=== PATIENT | female | born 1975 | race Caucasian/White ===

== ENCOUNTER 2022-07-22 08:52 | Outpatient (REF) | payer BC, SELFPAY ==
[2022-07-22 11:27] LABS: MANUAL DIFF FLAG NO
[2022-07-22 11:40] LABS: Basophils Percent Auto 0.6 % (0-2); Eosinophils Absolute Auto 0.1 X10*3/uL (0.0-0.4); Eosinophils Percent Auto 2.2 % (0-4); Hemoglobin 13.5 g/dl (12.0-16.0); Imm Gran Abs Auto 0.02 X10*3/uL (0.00-0.03); Imm Gran Pct Auto 0.4 % (0.0-0.4); Lymphocytes Absolute Auto 2.1 X10*3/uL (1.2-4.9); Lymphocytes Percent Auto 41.7 % (20-40); Mean Corpuscular HGB Conc 32.9 g/dl (31.0-35.0); Mean Corpuscular Hemoglobin 30.5 pg (27.0-33.0); Mean Corpuscular Volume 92.6 fL (80.0-98.0); Mean Platelet Volume 10.5 fL (9.4-12.3); Monocytes Absolute Auto 0.5 X10*3/uL (0.1-1.2); Monocytes Percent Auto 10.2 % (2-11); Neutrophils Absolute Auto 2.3 x10*3/uL (2.0-8.3); Neutrophils Percent Auto 44.9 % (45-73); Platelet Count 297 X10*3/uL (160-400); Red Blood Count 4.43 X10*6/uL (4.20-5.50); Red Cell Distribution Width 12.1 % (11.0-16.0); White Blood Count 5.1 X10*3/uL (4.8-10.8)
[2022-07-22 12:05] LABS: Alanine Aminotransferase 20 U/L (0-31); Albumin Level 4.3 g/dL (3.5-5.0); Alkaline Phosphatase 87 U/L (39-117); Anion Gap 14 (12-20); Aspartate Amino Transferase 18 U/L (5-31); Bilirubin Total 0.5 mg/dL (0.0-1.0); Blood Urea Nitrogen 18 mg/dL (9-16); Calcium 9.1 mg/dL (8.4-10.2); Carbon Dioxide 24 mmol/L (22-29); Chloride 108 mmol/L (96-108); Cholesterol 183 mg/dL; Estimated Glomerular Filt Rate > 60; Glucose Fasting 85 mg/dL (60-99); HDL Cholesterol 54 mg/dL; LDL Cholesterol Calculated 113 mg/dl; Potassium 4.2 mmol/L (3.3-5.1); Sodium 142 mmol/L (135-145); Total Protein 6.8 g/dL (6.5-8.0); Triglycerides 82 mg/dL
[2022-07-22 12:07] LABS: TSH reflex Free T4 2.76 uIU/mL (0.32-4.0); Vitamin D 25-OH Total 35.3 ng/mL (>30)
== END 2022-07-22 08:53 | disposition home or self-care (01) ==
LOC: HO.HMGCLDS 08:52
PROVIDERS: PCP Internal Medicine; Visit Provider Internal Medicine
DX: Z00.00 Encounter for general adult medical examination without abnormal findings (principal); E03.9 Hypothyroidism, unspecified; E04.1 Nontoxic single thyroid nodule; Z92.89 Personal history of other medical treatment
CPT/HCPCS: 36415; 80053; 80061; 82306; 84443; 85025

== ENCOUNTER 2023-03-02 10:59 | Outpatient (AMB) | payer BC, SELFPAY ==
--- NOTE | 2023-03-02 11:10 | MHC.PC.OV ---
Vital Signs 03/02/23 11:12 Height 5 ft 7 in Weight 165 lb BMI 25.8 BP 120/78 Blood Pressure Location Lt brachial Position Sitting Pulse 76 Pulse Source Pulse Oximeter Pulse Oximetry (%) 98 Oxygen Delivery Method Room Air Intake Visit Reasons: Fatigue, hair loss Intake Note: Pt is here today for a sick visit. Pt c/o fatigue and hair loss. Pt c/o lump on her neck/thyroid area. Allergies IVP Dye Adverse Reaction (Uncoded 03/02/23 11:16) Swelling Medication List - Last Reconciled 03/02/23 by Sally Marin MD loratadine 10 mg PO DAILY Tobacco use date assessed: 03/02/23 Dental Screening Dental Screen Date: 03/02/23 Did you have a dental visit in the last 12 months?: Yes Did you have a dental problem in the last 6 months where you did not have access to dental care?: No Was dental information given to patient?: Patient has dentist HPI Fatigue, hair loss HPI Details Pt presents complaining of chronic feeling tired needed to take a nap in the afternoon and increased hair loss the last 20 years. Patient reports getting enough sleep at night and denies daytime somnolence. She denies depression or change in appetite. Patient reports increased hair lost for the last 20 years and have been to different funeral counselor and try different medications without significant change. Patient denies any bald spots. She would like to see handyman for follow-up on large thyroid nodules with negative biopsy in the past. 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 Stewart Mock, Jennifer Lopes, Chip Méndez and colleagues, with an educational julian from [employer] Review of Systems Const All systems reviewed & are unremarkable except as noted in HPI and below Reports no additional complaints Eyes Reports no additional complaints ENT Reports no additional complaints Card Reports no additional complaints Resp Reports no additional complaints GI Reports no additional complaints Reports no additional complaints Physical exam (Primary Care) Vital Signs: Last Vital Signs Pulse 76 03/02/23 11:12 BP 120/78 03/02/23 11:12 Pulse Ox 98 03/02/23 11:12 Oxygen Delivery Method Room Air 03/02/23 11:12 BMI result Body Mass Index 25.8 Tobacco/Smoking Status: Tobacco use Status Tobacco use date assessed 03/02/23 03/02/23 11:19 Patient Tobacco Use Status Former Tobacco user 03/02/23 11:12 e-Cigarette/Vaping Use Never Used 03/02/23 11:12 Thrive Assessment: Date of Thrive Assessment Date Thrive assessed 07/22/22 03/02/23 11:12 Const General: no acute distress HENMT Ears: hearing grossly normal bilaterally Face and sinus: Yes normal facial exam Mouth: Normal oral and palatal mucosa present Eyes General: appearance normal, both eyes and all related structures Neck Neck: Yes supple Thyroid: diffusely enlarged Resp Effort & Inspection: normal respiratory effort Auscultation: clear to auscultation bilaterally Cardio Rhythm: regular rhythm Heart sounds: S1 normal heart sound present and S2 normal heart sound present GI Inspection: Yes normal to inspection Palpation (GI): Soft to palpation Percussion: Yes normal to percussion Auscultation: normal bowel sounds Assessment and Plan Assessment & Plan (1) Annual physical exam: Code(s): Z00.00 - Encounter for general adult medical examination without abnormal findings (2) Thyroid nodule: Comment: 3 nodules (1 large, 2 small nodules), use of bx [place] Code(s): E04.1 - Nontoxic single thyroid nodule Plan: Referred to Dr. Arce (3) Chronic constipation: Code(s): K59.09 - Other constipation Plan: Increase fiber and water intake, patient is up-to-date with colonoscopy (4) Fatigue: Code(s): R53.83 - Other fatigue Plan: Obtain blood work including TSH CBC iron profile Orders: Orders TSH reflex Free T4 Today E04.1 - Nontoxic single thyroid nodule, K59.09 - Other constipation, Z00.00 - Encounter for general adult medical examination without abnormal findings IRON PROFILE Today E04.1 - Nontoxic single thyroid nodule, K59.09 - Other constipation, Z00.00 - Encounter for general adult medical examination without abnormal findings Complete Blood Count Auto Diff Today E04.1 - Nontoxic single thyroid nodule, K59.09 - Other constipation, Z00.00 - Encounter for general adult medical examination without abnormal findings Vitamin B12 and Folate Today E04.1 - Nontoxic single thyroid nodule, K59.09 - Other constipation, Z00.00 - Encounter for general adult medical examination without abnormal findings Comprehensive [place]. Panel Fast Today E04.1 - Nontoxic single thyroid nodule, K59.09 - Other constipation, Z00.00 - Encounter for general adult medical examination without abnormal findings Referrals Endocrinology Referral E04.1 - Nontoxic single thyroid nodule Coding Level of Care Code Est Pt Level 3 (87580) Diagnoses Annual physical exam Z00.00 Thyroid nodule E04.1 Chronic constipation K59.09 Fatigue R53.83
[2023-03-02 11:12] VITALS: BP 120/78; PULSE 76; O2SAT 98; BMI 25.8
== END 2023-03-02 12:59 | disposition home or self-care (01) ==
PROVIDERS: PCP Internal Medicine; Visit Provider Internal Medicine
DX: E04.1 Nontoxic single thyroid nodule (principal); R53.83 Other fatigue; K59.09 Other constipation
CPT/HCPCS: 99213

== ENCOUNTER 2023-03-02 11:48 | Outpatient (REF) | payer BC, SELFPAY ==
[2023-03-02 13:20] LABS: MANUAL DIFF FLAG NO
[2023-03-02 13:53] LABS: Basophils Percent Auto 0.6 % (0-2); Eosinophils Absolute Auto 0.2 X10*3/uL (0.0-0.4); Eosinophils Percent Auto 3.9 % (0-4); Hematocrit 44.6 % (37.0-47.0); Hemoglobin 14.5 g/dl (12.0-16.0); Imm Gran Abs Auto 0.02 X10*3/uL (0.00-0.03); Imm Gran Pct Auto 0.4 % (0.0-0.4); Lymphocytes Absolute Auto 2.1 X10*3/uL (1.2-4.9); Mean Corpuscular HGB Conc 32.5 g/dl (31.0-35.0); Mean Corpuscular Hemoglobin 30.9 pg (27.0-33.0); Mean Corpuscular Volume 95.1 fL (80.0-98.0); Mean Platelet Volume 10.2 fL (9.4-12.3); Monocytes Absolute Auto 0.5 X10*3/uL (0.1-1.2); Monocytes Percent Auto 10.3 % (2-11); Neutrophils Absolute Auto 1.9 x10*3/uL (2.0-8.3); Neutrophils Percent Auto 40.8 % (45-73); Platelet Count 328 X10*3/uL (160-400); Red Blood Count 4.69 X10*6/uL (4.20-5.50); Red Cell Distribution Width 12.6 % (11.0-16.0); White Blood Count 4.7 X10*3/uL (4.8-10.8)
[2023-03-02 14:50] LABS: Alanine Aminotransferase 16 U/L (0-31); Albumin Level 4.7 g/dL (3.5-5.0); Alkaline Phosphatase 64 U/L (39-117); Anion Gap 10 (12-20); Aspartate Amino Transferase 14 U/L (5-31); Bilirubin Total 0.6 mg/dL (0.0-1.0); Blood Urea Nitrogen 14 mg/dL (9-16); Calcium 9.9 mg/dL (8.4-10.2); Carbon Dioxide 28 mmol/L (22-29); Chloride 107 mmol/L (96-108); Estimated Glomerular Filt Rate > 60; Glucose Fasting 78 mg/dL (60-99); Iron 105 mcg/dL (30-160); Percent Iron Saturation 32 % (15-50); Potassium 4.2 mmol/L (3.3-5.1); Sodium 141 mmol/L (135-145); Total Iron Binding Capacity 329 mcg/dL (228-428); Total Protein 7.7 g/dL (6.5-8.0); Unsaturated Iron Binding 224 ug/dL
[2023-03-02 14:52] LABS: TSH reflex Free T4 4.27 uIU/mL (0.32-4.0)
[2023-03-02 15:17] LABS: Folate 11.2 ng/mL (> or = 4.0); Vitamin B12 1380 pg/mL (200-900)
[2023-03-02 15:27] LABS: Free T4 (Free Thyroxine) 0.99 ng/dL (0.71-1.85)
== END 2023-03-02 11:49 | disposition home or self-care (01) ==
LOC: HO.HMGCLDS 11:48
PROVIDERS: PCP Internal Medicine; Visit Provider Internal Medicine
DX: Z00.00 Encounter for general adult medical examination without abnormal findings (principal); K59.09 Other constipation; E04.1 Nontoxic single thyroid nodule
CPT/HCPCS: 36415; 80053; 82607; 82746; 83540; 84439; 84443; 85025

== ENCOUNTER 2023-06-03 09:14 | Outpatient (REF) | payer BC, SELFPAY ==
[2023-06-03 12:46] LABS: Vitamin B12 484 pg/mL (200-900)
== END 2023-06-03 09:15 | disposition home or self-care (01) ==
LOC: HO.HMGCLDS 09:14
PROVIDERS: PCP Internal Medicine; Visit Provider Internal Medicine
DX: E03.9 Hypothyroidism, unspecified (principal)
CPT/HCPCS: 36415; 82607; 82746; 84443

== ENCOUNTER 2023-08-14 13:34 | Outpatient (AMB) | payer OTHER, SELFPAY ==
[2023-08-14 13:40] VITALS: BP 108/74; PULSE 71; O2SAT 98; BMI 25.1
--- NOTE | 2023-08-14 13:40 | A.OFFPC_ITS ---
Vital Signs 08/14/23 13:40 Height 5 ft 7 in Weight 160 lb BMI 25.1 BP 108/74 Blood Pressure Location Lt brachial Position Sitting Pulse 71 Pulse Source Pulse Oximeter Pulse Oximetry (%) 98 Oxygen Delivery Method Room Air Intake Visit Reasons: Annual PE Intake Note: Pt is here today for PE. Pt needs a rfill on Loratadine. Allergies IVP Dye Adverse Reaction (Uncoded 08/14/23 13:42) Swelling Medication List - Last Reconciled 08/14/23 by Sally Marin MD levothyroxine 50 mcg PO DAILY loratadine 10 mg PO DAILY Tobacco use date assessed: 08/14/23 Dental Screening Dental Screen Date: 08/14/23 Did you have a dental visit in the last 12 months?: Yes Did you have a dental problem in the last 6 months where you did not have access to dental care?: No Was dental information given to patient?: Patient has dentist HPI Annual PE HPI Details Patient presents for physical. She complains of feeling tired and increase hair loss. Patient has been taking 25 mcg of levothyroxine since last year. 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 1. Little interest or pleasure in doing things: not at all 2. Feeling down, depressed, or hopeless: not at all 3. Trouble falling or staying asleep, or sleeping too much: not at all 4. Feeling tired or having little energy: not at all 5. Poor appetite or overeating: not at all 6. Feeling bad about yourself - or that you are a failure or have let yourself or your family down: not at all 7. Trouble concentrating on things, such as reading the newspaper or watching television: not at all 8. Moving or speaking so slowly that other people could have noticed. Or the opposite - being so fidgety or restless that you have been moving around a lot more than usual: not at all 9. Thoughts that you would be better off or of hurting yourself in some way: not at all Total score: 0 Depression Screening Interpretation: Negative Depression Screening Done: Yes Source: Developed by Drs. Stewart Mock, Jennifer Lopes, Chip Méndez and colleagues, with an educational julian from [employer]. Thrive Questionnaire Date Thrive assessed: 08/14/23 I am a: Patient What is your living situation today?: I have a steady place to live Within the past 12 months, did the food you bought not last and you didn't have the money to get more?: Never true Within the past 12 months, did you worry whether your food would run out before you got money to buy more?: Never true Do you have trouble paying for medicines?: No Do you have trouble getting transportation to medical appointments?: No Do you have trouble paying your heating and electricity bill?: No Do you have trouble taking care of your child, family member or friend?: No Do you have trouble with day-to-day activities such as bathing, preparing meals, shopping, managing finances, etc.?: No Are you currently unemployed and looking for a job?: No Are you interested in more education?: No Please select the resources that you would like help with: None Currently or been in a relationship where the following occur: no concerns reported THRIVE Score: 0 AUDIT C Alcohol Use Questionnaire (AUDIT-C) 1. How often do you have a drink containing alcohol?: Never 3. How often do you have six or more drinks on one occasion?: Never Total Score: 0 KENA-7 AMB Questionnaire KENA-7 Date KENA - 7 assessed: 08/14/23 Feeling nervous, anxious, or on edge: 0 = Not at all Not being able to stop or control worryin = Not at all Worrying too much about different things: 0 = Not at all Trouble relaxin = Not at all Being so restless that it is hard to sit still: 0 = Not at all Becoming easily annoyed or irritable: 0 = Not at all Feeling afraid as if something awful might happen: 0 = Not at all Total KENA-7 score (0-4 normal; 5-9 mild; 10-14 moderate; 15-21 severe): 0 Source: Developed by Drs. Stewart Mock, Jennifer Lopes, Chip Méndez and colleagues, with an educational julian from [employer]. Review of Systems Const All systems reviewed & are unremarkable except as noted in HPI and below Reports no additional complaints Eyes Reports no additional complaints ENT Reports no additional complaints Card Reports no additional complaints Resp Reports no additional complaints GI Reports no additional complaints Reports no additional complaints Physical exam (Primary Care) Vital Signs: Last Vital Signs Pulse 71 08/14/23 13:40 BP 108/74 08/14/23 13:40 Pulse Ox 98 08/14/23 13:40 Oxygen Delivery Method Room Air 08/14/23 13:40 BMI result Body Mass Index 25.1 Tobacco/Smoking Status: Tobacco use Status Tobacco use date assessed 08/14/23 08/14/23 13:45 Patient Tobacco Use Status Former Tobacco user 08/14/23 13:45 e-Cigarette/Vaping Use Never Used 08/14/23 13:45 PHQ-9: PHQ-9 Score PHQ-9: Total score 0 08/14/23 13:46 Depression Screening Interpretation: Negative Thrive Assessment: Date of Thrive Assessment Date Thrive assessed 08/14/23 08/14/23 13:46 Currently or been in a relationship where the following occur: no concerns reported Const General: no acute distress HENMT Head: Yes normal to inspection General nose exam: Normal external nose present Mouth: Normal oral and palatal mucosa present Eyes General: appearance normal, both eyes and all related structures Neck Neck: Yes no lymphadenopathy and Yes supple Resp Effort & Inspection: normal respiratory effort Auscultation: clear to auscultation bilaterally Cardio Rhythm: regular rhythm Heart sounds: S1 normal heart sound present and S2 normal heart sound present GI Inspection: Yes normal to inspection Palpation (GI): Soft to palpation Percussion: Yes normal to percussion Auscultation: normal bowel sounds Assessment and Plan Assessment & Plan (1) Thyroid nodule: Comment: 3 nodules (1 large, 2 small nodules) had negative bx [place] 2021, patient declined repeat thyroid ultrasound Code(s): E04.1 - Nontoxic single thyroid nodule (2) Annual physical exam: Code(s): Z00.00 - Encounter for general adult medical examination without abnormal findings Plan: Well-balanced diet regular physical activity discussed with the patient. She will return in 2 months for fasting blood. Patient is up-to-date with pelvic exam by material yard clerk and had negative colonoscopy in 2017. Mammogram will be scheduled at [place] (3) Hypothyroid: Code(s): E03.9 - Hypothyroidism, unspecified Plan: Increase levothyroxine from 25-50 mcg for 2 months and check TSH level Orders: Orders Comprehensive [place]. Panel Fast 2 Months E04.1 - Nontoxic single thyroid nodule, Z00.00 - Encounter for general adult medical examination without abnormal findings Lipid Panel 2 Months E04.1 - Nontoxic single thyroid nodule, Z00.00 - Encounter for general adult medical examination without abnormal findings Vitamin D 25-OH Total 2 Months E04.1 - Nontoxic single thyroid nodule, Z00.00 - Encounter for general adult medical examination without abnormal findings Complete Blood Count Auto Diff 365 Days E03.9 - Hypothyroidism, unspecified, E04.1 - Nontoxic single thyroid nodule, Z00.00 - Encounter for general adult medical examination without abnormal findings Lipid Panel 365 Days E03.9 - Hypothyroidism, unspecified, E04.1 - Nontoxic single thyroid nodule, Z00.00 - Encounter for general adult medical examination without abnormal findings Vitamin D 25-OH Total 365 Days E03.9 - Hypothyroidism, unspecified, E04.1 - Nontoxic single thyroid nodule, Z00.00 - Encounter for general adult medical examination without abnormal findings MM screening mammo BI Today Z12.31 - Encounter for screening mammogram for malignant neoplasm of breast Complete Blood Count Auto Diff 2 Months E04.1 - Nontoxic single thyroid nodule, Z00.00 - Encounter for general adult medical examination without abnormal findings TSH reflex Free T4 2 Months E04.1 - Nontoxic single thyroid nodule, Z00.00 - Encounter for general adult medical examination without abnormal findings UA w Microscopic 2 Months E04.1 - Nontoxic single thyroid nodule, Z00.00 - Encounter for general adult medical examination without abnormal findings Comprehensive [place]. Panel Fast 365 Days E03.9 - Hypothyroidism, unspecified, E04.1 - Nontoxic single thyroid nodule, Z00.00 - Encounter for general adult medical examination without abnormal findings TSH reflex Free T4 365 Days E03.9 - Hypothyroidism, unspecified, E04.1 - Nontoxic single thyroid nodule, Z00.00 - Encounter for general adult medical examination without abnormal findings Medications: New levothyroxine 50 mcg PO DAILY 90 tabs 3RF loratadine 10 mg PO DAILY 90 tabs 3RF Discontinued levothyroxine Discontinued Reason: Doctor's Order 25 mcg PO DAILY 90 tabs 0RF Coding Level of Care Code Est Pt Prev Care 40-64y(47864) Diagnoses Thyroid nodule E04.1 Annual physical exam Z00.00 Hypothyroid E03.9
== END 2023-08-14 14:20 | disposition home or self-care (01) ==
PROVIDERS: PCP Internal Medicine; Visit Provider Internal Medicine
DX: E04.1 Nontoxic single thyroid nodule (principal); Z00.00 Encounter for general adult medical examination without abnormal findings; E03.9 Hypothyroidism, unspecified
CPT/HCPCS: 99396

== ENCOUNTER 2023-09-15 15:16 | Outpatient (REF) | payer OTHER, SELFPAY ==
--- NOTE | ~2023-09-15 | MM_ITS ---
EXAMINATION: MM SCREENING DIGITAL BREAST TOMOSYNTHESIS, BILATERAL CLINICAL INFORMATION: Screening. Asymptomatic. COMPARISON: Mammography: This study is compared with prior exams dating back to 2019. TECHNIQUE: Digital breast tomosynthesis is performed in both the craniocaudal and mediolateral oblique views along with computer-aided detection (CAD). Synthesized 2D images are generated from the tomosynthesis. FINDINGS: The breasts are heterogeneously dense, which may obscure small masses (ACR BI-RADS breast composition Category c). There are no significant masses, abnormal calcifications, or other abnormalities. There are scattered calcifications in each breast. They are benign. MM/MM tomosynthesis screening BI IMPRESSION: No mammographic evidence of malignancy. ASSESSMENT: BI-RADS BI-RADS 1 - Negative RECOMMENDATION: Routine annual mammography screening. 1 year F/U This examination should not preclude the clinical evaluation of a suspicious palpable abnormality. This patient's information was entered into a reminder system with a target due date for their next mammogram.
== END 2023-09-15 15:17 | disposition home or self-care (01) ==
LOC: HO.MAMMO 15:16
PROVIDERS: PCP Internal Medicine; Visit Provider Internal Medicine
DX: Z12.31 Encounter for screening mammogram for malignant neoplasm of breast (principal)
CPT/HCPCS: 77063; 77067

== ENCOUNTER → 2023-09-15 15:18 | Outpatient (BNV) | payer OTHER, SELFPAY | PROVIDERS: PCP Internal Medicine; Visit Provider Radiology Diagnostic Radiology | DX: Z12.31 Encounter for screening mammogram for malignant neoplasm of breast (principal) | CPT/HCPCS: 77063; 77067 ==

== ENCOUNTER 2023-10-17 08:56 | Outpatient (REF) | payer OTHER, SELFPAY ==
[2023-10-17 11:08] LABS: MANUAL DIFF FLAG NO
[2023-10-17 11:17] LABS: Basophils Percent Auto 0.5 % (0-2); Eosinophils Absolute Auto 0.2 X10*3/uL (0.0-0.4); Eosinophils Percent Auto 3.4 % (0-4); Hematocrit 41.4 % (37.0-47.0); Hemoglobin 13.8 g/dl (12.0-16.0); Imm Gran Abs Auto 0.02 X10*3/uL (0.00-0.03); Imm Gran Pct Auto 0.3 % (0.0-0.4); Lymphocytes Absolute Auto 2.4 X10*3/uL (1.2-4.9); Lymphocytes Percent Auto 39.6 % (20-40); Mean Corpuscular HGB Conc 33.3 g/dl (31.0-35.0); Mean Corpuscular Hemoglobin 30.9 pg (27.0-33.0); Mean Corpuscular Volume 92.6 fL (80.0-98.0); Mean Platelet Volume 10.1 fL (9.4-12.3); Monocytes Absolute Auto 0.7 X10*3/uL (0.1-1.2); Monocytes Percent Auto 11.1 % (2-11); Neutrophils Absolute Auto 2.7 x10*3/uL (2.0-8.3); Neutrophils Percent Auto 45.1 % (45-73); Platelet Count 317 X10*3/uL (160-400); Red Blood Count 4.47 X10*6/uL (4.20-5.50); Red Cell Distribution Width 12.2 % (11.0-16.0); White Blood Count 5.9 X10*3/uL (4.8-10.8)
[2023-10-17 11:19] LABS: Appearance Urine Cloudy; Color Urine Yellow; Glucose Urine UA Negative (Negative); Leukocyte Esterase Urine Trace (Negative); Nitrite Urine Negative (Negative); UMIC TRIGGER UA YES; Urine Blood Negative (Negative); Urine Ketones Negative (Negative); Urine Protein Negative (Neg-Trace)
[2023-10-17 11:23] LABS: Bacteria Urine 3+ (None Seen); Hyaline Casts Urine 0-2 /LPF (0-2); RBC Urine 0-2 /HPF (0-2); WBC Urine 0-5 /HPF (0-5)
[2023-10-17 12:10] LABS: Alanine Aminotransferase 17 U/L (0-31); Albumin Level 4.2 g/dL (3.5-5.0); Alkaline Phosphatase 77 U/L (39-117); Anion Gap 12 (12-20); Aspartate Amino Transferase 18 U/L (5-31); Bilirubin Total 0.3 mg/dL (0.0-1.0); Blood Urea Nitrogen 16 mg/dL (9-16); Calcium 9.8 mg/dL (8.4-10.2); Carbon Dioxide 26 mmol/L (22-29); Chloride 109 mmol/L (96-108); Cholesterol 203 mg/dL (<200); Estimated Glomerular Filt Rate > 60; Glucose Fasting 93 mg/dL (60-99); HDL Cholesterol 57 mg/dL (>40); LDL Cholesterol Calculated 133 mg/dL (<100); Potassium 4.2 mmol/L (3.3-5.1); Sodium 143 mmol/L (135-145); Total Protein 7.1 g/dL (6.5-8.0); Triglycerides 66 mg/dL (<150)
[2023-10-17 12:28] LABS: TSH reflex Free T4 1.49 uIU/mL (0.32-4.0); Vitamin D 25-OH Total 66.2 ng/mL (>30)
== END 2023-10-17 08:57 | disposition home or self-care (01) ==
LOC: HO.HMGCLDS 08:56
PROVIDERS: PCP Internal Medicine; Visit Provider Internal Medicine
DX: Z00.00 Encounter for general adult medical examination without abnormal findings (principal); E04.1 Nontoxic single thyroid nodule
CPT/HCPCS: 36415; 80053; 80061; 81001; 82306; 84443; 85025

== ENCOUNTER 2024-01-11 11:16 | Outpatient (REF) | payer OTHER, SELFPAY ==
--- NOTE | ~2024-01-11 | US_ITS ---
EXAMINATION: US THYROID CLINICAL INFORMATION: Nontoxic single thyroid nodule. COMPARISON: None available. TECHNIQUE: Linear transducer grayscale and color Doppler examination with attention to the region of the thyroid. FINDINGS: SIZE: Measurements of the thyroid lobes and nodules are given in sagittal, anteroposterior and transverse dimensions respectively. Right Thyroid Lobe: 6.1 x 2.3 x 3.0 cm, volume 22.0 mL. Parenchyma: The gland echotexture is homogeneous. Thyroid vascularity is increased. Left Thyroid Lobe: 5.3 x 1.3 x 1.7 cm, volume 6.1 mL. Parenchyma: The gland echotexture is homogeneous. Thyroid vascularity is increased. Isthmus: 0.3 cm in maximum AP dimension. Estimated total number of nodules greater than or equal to 1 cm: 2. Neonatal Doctor nodules are described as follows: 1. Location: Right superior/mid. Size: 4.0 x 2.4 x 2.9 cm, volume 14.9 mL. Nodule characteristics: Composition: Mixed cystic and solid (1). Echogenicity: Cannot be determined (1). Shape: Not taller than wide (0). Margins: Smooth (0). Echogenic Foci: Punctate echogenic foci (3). ACR TI-RADS total points: 5 ACR TI-RADS category: 4 2. Location: Right inferior. Size: 1.3 x 1.0 x 1.2 cm, volume 0.85 mL. Nodule characteristics: Composition: Solid (2). Echogenicity: Isoechoic (1). Shape: Not taller than wide (0). Margins: Smooth (0). Echogenic Foci: None (0). ACR TI-RADS total points: 3 ACR TI-RADS category: 3 3. Location: Right inferior-isthmus. Size: 0.9 x 0.5 x 0.9 cm, volume 0.25 mL. Nodule characteristics: Composition: Solid (2). Echogenicity: Hypoechoic (2). Shape: Not taller than wide (0). Margins: Smooth (0). Echogenic Foci: None (0). ACR TI-RADS total points: 4 ACR TI-RADS category: 4 4. Location: Left inferior lateral. Size: 0.7 x 0.6 x 0.6 cm, volume 0.11 mL. Nodule characteristics: Composition: Solid (2). Echogenicity: Hyperechoic (1). Shape: Not taller than wide (0). Margins: Smooth (0). Echogenic Foci: Punctate echogenic foci (3). ACR TI-RADS total points: 6 ACR TI-RADS category: 4 NODES: No lymphadenopathy is seen in the tissue surrounding the thyroid gland. US/US thyroid IMPRESSION: Diffusely heterogeneous thyroid gland with asymmetric enlargement of the right thyroid lobe. 4.0 cm right [id number] TR 4 thyroid nodule meets criteria for biopsy. Fine-needle aspiration recommended. This study was presented to me on January 14, 2024 for interpretation. PSA staff will provide results to referring provider at this time. ACR TI-RADS RECOMMENDATION REFERENCE: Ultrasound-guided fine-needle aspiration, followup ultrasound, no further follow up. * TR1 (0 point) and TR2 (2 points): No FNA or follow up. * TR3 (3 points): FNA if more than or equal to 2.5 cm in maximum dimension, followup ultrasound in 1, 3 and 5 years if 1.5 to 2.4 cm in maximum dimension. * TR4 (4-6 points): FNA if more than or equal to 1.5 cm in maximum dimension, followup ultrasound in 1, 2, 3 and 5 years if 1 to 1.4 cm in maximum dimension. * TR5 (more than or equal to 7 points): FNA if more than or equal to 1 cm in maximum dimension, followup ultrasound every year for 5 years if 0.5 to 0.9 cm in maximum dimension. * TR3, TR4 or TR5 nodules that are below the size threshold for followup receive no follow up.
== END 2024-01-11 11:17 | disposition home or self-care (01) ==
LOC: HO.HMGCX 11:16
PROVIDERS: PCP Internal Medicine; Visit Provider Internal Medicine
DX: E04.1 Nontoxic single thyroid nodule (principal)
CPT/HCPCS: 76536

== ENCOUNTER 2024-09-03 08:13 | Outpatient (REF) | payer OTHER, SELFPAY ==
--- OUTSIDE RECORDS SUMMARY | 2024-09-03 08:15 | XMS_ITS | Data Portability ---
Author Organization PAMELA Jimenez s, [address] Address [address] [place] [address] Assessment No assessment recorded. Plan of Treatment Reminders Order Date Submit Date Provider Last Modified By Organization Details Last Modified Time Details Appointments None recorded. Lab urinalysis, dipstick 2022 023 [email or web address] [facility] _[facility], [address] [facility], [place], [address], 3 19:39:12 culture, urine 2022 023 HARPER WOODS [facility], [address] [place] [address], [place], [address], 3 08:06:14 Referral None recorded. Procedures None recorded. Surgeries None recorded. Imaging XR, chest + abdomen 2022 023 [facility], [address] [place] [address], [address], 3 20:14:58 Medication Orders Miralax 17 gram/dose oral powder 2022 023 [facility]/Pharmacy #[id number], [address] [place], [address], 3 19:48:44 Colace 100 mg capsule 2022 023 [facility]/Pharmacy #[id number], [address] [place], [address], 3 19:48:45 Culturelle 10 billion cell capsule 2022 023 [email or web address] 247 [facility]/Pharmacy #[id number], [address] [place], [address], 10:07:11 Patient TargetsNo targets recorded. Patient InstructionsNo instructions recorded. Reason for Referral None Reported. Results Created Date Observation Date Name Description Value Unit Range Abnormal Flag Note LastModifiedBy Organization Detail LastModifiedTime 06/20/1906/23/2022 URINE CULTU RE, ROUTI NE urine culture, routine FINAL REPORT Not Available [facility] ([facility]) [address] [facility], [place], [address], 06/23/2022 08:06:13 06/20/1906/23/2022 URINE CULTU RE, ROUTI NE result 1 COMMEN T Cultu re shows less than 10,00 0 colon y formi ng units of bacte charlotte per howard liter of urine . This colon y count is not gener ally consi dered to be clini colin signi fican t. Not Available [facility] ([facility]) [address] [facility], [place], [address], 06/23/2022 08:06:13 06/20/1906/20/2022 urina lysis , dipst ick Unknown Analyte Normal = light yellow Not Available _jerome packer [address] [place], [address], 06/20/2022 17:18:13 06/20/1906/20/2022 urina lysis , dipst ick Unknown Analyte Normal = clear Not Available _jerome packer [address] [place], [address], 06/20/2022 17:18:13 06/20/19 23 06/20/2022 urina lysis , dipst ick Unknown Analyte Normal = negati ve Not Available _jerome packer [address] [place], [address], 06/20/2022 17:18:13 06/20/19 23 06/20/2022 urina lysis , dipst ick Unknown Analyte Normal = Negati ve Not Available [address]er [address], [place], [address], 06/20/2022 17:18:13 06/20/19 23 06/20/2022 urina lysis , dipst ick Unknown Analyte Normal = Negati ve Not Available [address] [place] [address], [place], [address], 06/20/2022 17:18:13 06/20/19 23 06/20/2022 urina lysis , dipst ick Unknown Analyte Normal = 1.010, 1.015, 1.020 Not Available [address] [place] [address], [place], [address], 06/20/2022 17:18:13 06/20/19 23 06/20/2022 urina lysis , dipst ick Unknown Analyte Normal = Negati ve Not Available [address] [place] [address], [place], [address], 06/20/2022 17:18:13 06/20/19 23 06/20/2022 urina lysis , dipst ick Unknown Analyte Normal = 6.5, 7.0, 7.5, 8.0 Not Available [address] [place] [address], [place], [address], 06/20/2022 17:18:13 06/20/19 23 06/20/2022 urina lysis , dipst ick Unknown Analyte Normal = Negati ve Not Available [address] [place] [address], [place], [address], 06/20/2022 17:18:13 06/20/19 23 06/20/2022 urina lysis , dipst ick Unknown Analyte Normal = 0.2, 1.0 Not Available jerome packer [address], [place], [address], 06/20/2022 17:18:13 06/20/19 23 06/20/2022 urina lysis , dipst ick Unknown Analyte Normal = Negati ve Not Available jerome [address], [place], [address], 06/20/2022 17:18:13 06/20/19 23 06/20/2022 urina lysis , dipst ick Unknown Analyte Normal = Negati ve Not Available jerome packer [address], [place], [address], 06/20/2022 17:18:13 06/20/19 23 06/20/2022 urina lysis , dipst ick Unknown Analyte Yellow Not Available [address], [place], [address], 06/20/2022 17:18:13 06/20/19 23 06/20/2022 urina lysis , dipst ick Unknown Analyte Clear Not Available [address], [place], [address], 06/20/2022 17:18:13 06/20/19 23 06/20/2022 urina lysis , dipst ick Unknown Analyte Negati ve Not Available [address], [place], [address], 06/20/2022 17:18:13 06/20/19 23 06/20/2022 urina lysis , dipst ick Unknown Analyte Negati ve Not Available [address], [place], [address], 06/20/2022 17:18:13 0106/20/2022 urina lysis , dipst ick Unknown Analyte Negati ve Not Available jerome packer [address], [place], [address], 06/20/2022 17:18:13 06/20/19 23 06/20/2022 urina lysis , dipst ick Unknown Analyte 1.015 Not Available shalom [address], [place], [address], 06/20/2022 17:18:13 06/20/19 23 06/20/2022 urina lysis , dipst ick Unknown Analyte Trace- lysed Not Available jerome packer [address], [place], [address], 06/20/2022 17:18:13 06/20/19 23 06/20/2022 urina lysis , dipst ick Unknown Analyte 5.5 Not Available [facility] [address], [place], [address], 06/20/2022 17:18:13 06/20/1906/20/2022 urina lysis , dipst ick Unknown Analyte Negati ve Not Available jerome packer [address], [place], [address], 06/20/2022 17:18:13 06/20/19 23 06/20/2022 urina lysis , dipst ick Unknown Analyte 0.2 E.U./d L Not Available jerome packer [address], [place], [address], 06/20/2022 17:18:13 06/20/19 23 06/20/2022 urina lysis , dipst ick Unknown Analyte Negati ve Not Available jerome packer [address], [place], [address], 06/20/2022 17:18:13 06/20/19 23 06/20/2022 urina lysis , dipst ick Unknown Analyte Negati ve Not Available [address] [facility], [place], [address], 06/20/2022 17:18:13 06/20/19 23 06/20/2022 XR, chest + abdom en No observ ation record ed. [email or web address] 1 [facility] [address] [place], [address], 06/22/2022 11:52:54 Result Notes None recorded. Problems No Known Problems Procedures Surgical History Date Name Laterality Status Provider Name and Address Organization Details Recorded Time section completed IRIS COUVERTIER PA - [facility] 06/20/2022 17:20:50 Cholecystectomy completed IRIS COUVERTIER PA - [facility] 06/20/2022 17:21:09 Imaging Results Imaging Date Name Status LastModified by Organiz ation Details LastModified Time 06/20/2022 XR, chest + abdomen completed [email or web address] [facility] [address] [place], [address], 06/22/2022 11:52:54 Procedure Notes None recorded. Medical Equipment None Reported. Medications Name Sig Start Date Stop Date Status Note LastModified by Organization Details LastModified Time Miralax 17 gram/dose oral powder Take 17 g every day by oral route. 023 active Not Available Not Available Not Avai lable Colace 100 mg capsule Take 1 capsule every day by oral route for 5 days. 023 active Not Available Not Available Not Avai lable Culturelle 10 billion cell capsule Take 1 capsule every day by oral route at bedtime. 023 active Not Available Not Available Not Avai lable Vitals Date Recorded Body height Body mass index (BMI) Body weight Body temperature Respiratory rate Heart rate Oxygen saturation Oxygen saturation in Arterial blood by Pulse oximetry Systolic blood pressure Diastolic blood pressure Provider Name and Address Organization Details Last Updated DateTime 3 170.18 cm 26.3 kg/m2 65273.5 2 g 98.1 [degF] 20 /min 74 /min 99 % 99 % 112 mm[Hg] 73 mm[Hg] JOE Balderas PA - [facility] 17:24:24 Social History Question Answer Notes LastModified by Organizat ion Details LastModified Time Tobacco Smoking Status Former Smoker JOE MALLOY manjinder PA - [facility] 06/20/2022 17:20:31 What Is Your Level Of Alcohol Consumption? None Information not available 06/20/2022 What Is Your Water Source? City Information not available 06/20/2022 What Is Your Heat Source? Other Information not available 06/20/2022 Have You Had Direct Contact, Or Contact During Intimacy, With Monkeypox Rash, Scabs, Or Body Fluids From A Person With Monkeypox? No Information not available 06/20/2022 Do You Use Any Illicit Or Recreational Drugs? No Information not available 06/20/2022 Have You Recently Traveled Abroad? No Information not available 06/20/2022 Do You Or Have You Ever Used Any Other Forms Of Tobacco Or Nicotine? No Information not available 06/20/2022 Sex: Unknown Functional Status None recorded. Mental Status None recorded. Family History Relationship Description Onset Age of this Age Resolved Age Notes LastModified by Organization Details LastModified Time Father No current problems or disability Not available 17:20:21 Mother No current problems or disability Not available 17:20:21 Medical History No medical history recorded. Gynecological History Statement/Question Response Date of LMP 10/14/2021 Obstetrics History GPAL:G 0 P 0 0 0 0 Past Encounters Encounter ID Performer Location Encounter Start Date Encounter Closed Date Diagnosis/Indication Diagnosis SNOMED-CT Code Diagnosis ICD10 Code Diagnosis Note [id number] [address] [place] [address] 06/27/2019 10:52:28 06/27/2019 11:48:06 [id number] MICHAEL ALONZO MD [address] [place] [address] 06/20/2022 16:14:59 06/20/2022 19:51:15 Abdominal pain 57114939 R10.9 Constipation 40997324 K5 9.00 increase fiber in your diet to 25 mg per day. Health Concerns Section Related Observation LastModified by Organization Detai ls LastModified Time None Recorded Concern Status LastModified by Organization Details LastModified Time None Recorded Advance Directives Directive None Recorded Payers Encounter Date Sequence Insurance Name Policy Number Policy [place] Covered Member ID [place] Member ID Guarantor Name 06/27/2019 1 [facility] [id number] [employer] (formerly [employer]) [id number] [employer] ([employer]) 06/20/2022 1 [place] [id number] milabentorski [id number] [employer] Deanne Notes Date Note Type Note Provider Name and Address Organization Details Recorded Time 06/20/2022 text/html Urinary Complain t FemaleReported bypatient.UTI Symptoms:no blood in the urine;pain during urination;urgency;ur inary frequency;abdominal pain;flank pain;fever/chills Severity:moderate Duration:4 days abd pain and back pain, urine frequency x 4 days MICHAEL ALONZO MD [address] [place], [place] [address], [address], PA - [facility] 07/11/2022 10:09:39 OBGyn Episode No OBEpisode recorded.
[2024-09-03 12:01] LABS: MANUAL DIFF FLAG NO
[2024-09-03 12:09] LABS: Basophils Percent Auto 0.8 % (0-2); Eosinophils Absolute Auto 0.2 X10*3/uL (0.0-0.4); Eosinophils Percent Auto 3.5 % (0-4); Hematocrit 41.7 % (37.0-47.0); Hemoglobin 13.8 g/dl (12.0-16.0); Imm Gran Abs Auto 0.01 X10*3/uL (0.00-0.03); Imm Gran Pct Auto 0.2 % (0.0-0.4); Lymphocytes Absolute Auto 2.3 X10*3/uL (1.2-4.9); Lymphocytes Percent Auto 45.3 % (20-40); Mean Corpuscular HGB Conc 33.1 g/dl (31.0-35.0); Mean Corpuscular Volume 90.7 fL (80.0-98.0); Mean Platelet Volume 9.9 fL (9.4-12.3); Monocytes Absolute Auto 0.6 X10*3/uL (0.1-1.2); Monocytes Percent Auto 11.6 % (2-11); Neutrophils Percent Auto 38.6 % (45-73); Platelet Count 350 X10*3/uL (160-400); Red Cell Distribution Width 12.2 % (11.0-16.0); White Blood Count 5.1 X10*3/uL (4.8-10.8)
[2024-09-03 12:37] LABS: Alanine Aminotransferase 24 U/L (0-31); Albumin Level 4.2 g/dL (3.5-5.0); Alkaline Phosphatase 175 U/L (39-117); Anion Gap 8 (12-20); Aspartate Amino Transferase 20 U/L (5-31); Bilirubin Total 0.5 mg/dL (0.0-1.0); Blood Urea Nitrogen 16 mg/dL (9-16); Calcium 9.1 mg/dL (8.4-10.2); Carbon Dioxide 26 mmol/L (22-29); Chloride 110 mmol/L (96-108); Cholesterol 183 mg/dL (<200); Estimated Glomerular Filt Rate > 60; Glucose Fasting 91 mg/dL (60-99); HDL Cholesterol 57 mg/dL (>40); LDL Cholesterol Calculated 115 mg/dL (<100); Sodium 140 mmol/L (135-145); Total Protein 7.3 g/dL (6.5-8.0); Triglycerides 57 mg/dL (<150)
[2024-09-03 12:57] LABS: TSH reflex Free T4 1.85 uIU/mL (0.32-4.0); Vitamin D 25-OH Total 62.6 ng/mL (>30)
== END 2024-09-03 08:14 | disposition home or self-care (01) ==
LOC: HO.HMGCLDS 08:13
PROVIDERS: PCP Internal Medicine; Visit Provider Internal Medicine
DX: Z00.00 Encounter for general adult medical examination without abnormal findings (principal); E04.1 Nontoxic single thyroid nodule; E03.9 Hypothyroidism, unspecified
CPT/HCPCS: 36415; 80053; 80061; 82306; 84443; 85025

== ENCOUNTER 2024-09-07 12:56 | Outpatient (AMB) | payer OTHER, SELFPAY ==
--- NOTE | 2024-09-07 13:18 | A.OFFPC_ITS ---
Vital Signs 09/07/24 13:19 Height 5 ft 7 in Weight 172 lb BMI 26.9 BP 112/78 Blood Pressure Location Lt brachial Position Sitting Respiration 18 Pulse 86 Pulse Source Pulse Oximeter Temp 98.5 F Temp Source Oral Pulse Oximetry (%) 97 Oxygen Delivery Method Room Air Intake Visit Reasons: Annual PE Intake Note: Pt is here today for PE. Allergies IVP Dye Adverse Reaction (Uncoded 09/07/24 13:20) Swelling Medication List - Last Reconciled 09/07/24 by Sally Marin MD levothyroxine 50 mcg PO DAILY loratadine 10 mg PO DAILY Tobacco use date assessed: 09/07/24 Dental Screening Dental Screen Date: 09/07/24 Did you have a dental visit in the last 12 months?: Yes Did you have a dental problem in the last 6 months where you did not have access to dental care?: No Was dental information given to patient?: Patient has dentist HPI Annual PE HPI Details Pt presents for PE. Patient complains of hot flashes and night sweats and has been on estrogen patch prescribed by real estate office supervisor for 1 year but the patch has been becoming less effective. 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 1. Little interest or pleasure in doing things: not at all 2. Feeling down, depressed, or hopeless: not at all 3. Trouble falling or staying asleep, or sleeping too much: not at all 4. Feeling tired or having little energy: not at all 5. Poor appetite or overeating: not at all 6. Feeling bad about yourself - or that you are a failure or have let yourself or your family down: not at all 7. Trouble concentrating on things, such as reading the newspaper or watching television: not at all 8. Moving or speaking so slowly that other people could have noticed. Or the opposite - being so fidgety or restless that you have been moving around a lot more than usual: not at all 9. Thoughts that you would be better off or of hurting yourself in some way: not at all Total score: 0 Depression Screening Interpretation: Negative Depression Screening Done: Yes 24106 - PHQ-9 Billing: Yes Source: Developed by Drs. Stewart Mock, Jennifer Lopes, Chip Méndez and colleagues, with an educational julian from [employer]. Thrive Questionnaire Date Thrive assessed: 09/07/24 I am a: Patient What is your living situation today?: I have a steady place to live Within the past 12 months, did the food you bought not last and you didn't have the money to get more?: I choose not to answer this question Within the past 12 months, did you worry whether your food would run out before you got money to buy more?: I choose not to answer this question Do you have trouble paying for medicines?: No Do you have trouble getting transportation to medical appointments?: No Do you have trouble paying your heating and electricity bill?: No Do you have trouble taking care of your child, family member or friend?: No Do you have trouble with day-to-day activities such as bathing, preparing meals, shopping, managing finances, etc.?: No Are you currently unemployed and looking for a job?: No Are you interested in more education?: No Please select the resources that you would like help with: None Currently or been in a relationship where the following occur: No concerns reported THRIVE Score: 0 AUDIT C Alcohol Use Questionnaire (AUDIT-C) 1. How often do you have a drink containing alcohol?: Never 3. How often do you have six or more drinks on one occasion?: Never Total Score: 0 KENA-7 AMB Questionnaire KENA-7 Date KENA - 7 assessed: 09/07/24 Feeling nervous, anxious, or on edge: 0 = Not at all Not being able to stop or control worryin = Not at all Worrying too much about different things: 0 = Not at all Trouble relaxin = Not at all Being so restless that it is hard to sit still: 0 = Not at all Becoming easily annoyed or irritable: 0 = Not at all Feeling afraid as if something awful might happen: 0 = Not at all Total KENA-7 score (0-4 normal; 5-9 mild; 10-14 moderate; 15-21 severe): 0 Source: Developed by Drs. Stewart Mock, Jennifer Lopes, Chip Méndez and colleagues, with an educational julian from [employer]. KENA-7 Assessment Billing KENA-7 Assessment Tool: KENA-7 Assessment 60220 Review of Systems Const All systems reviewed & are unremarkable except as noted in HPI and below Reports no additional complaints Eyes Reports no additional complaints ENT Reports no additional complaints Card Reports no additional complaints Resp Reports no additional complaints GI Reports no additional complaints Reports no additional complaints Musc Reports no additional complaints Physical exam (Primary Care) Vital Signs: Last Vital Signs Temp 98.5 F 09/07/24 13:19 Pulse 86 09/07/24 13:19 Resp 18 09/07/24 13:19 BP 112/78 09/07/24 13:19 Pulse Ox 97 09/07/24 13:19 Oxygen Delivery Method Room Air 09/07/24 13:19 BMI result Body Mass Index 26.9 Tobacco/Smoking Status: Tobacco use Status Tobacco use date assessed 09/07/24 09/07/24 13:23 Patient Tobacco Use Status Former Tobacco user 09/07/24 13:18 e-Cigarette/Vaping Use Never Used 09/07/24 13:18 PHQ-9: PHQ-9 Score PHQ-9: Total score 0 09/07/24 13:26 Depression Screening Interpretation: Negative Thrive Assessment: Date of Thrive Assessment Date Thrive assessed 09/07/24 09/07/24 13:27 Currently or been in a relationship where the following occur: No concerns reported Const General: no acute distress HENMT Head: Yes normal to inspection Ears: hearing grossly normal bilaterally Face and sinus: Yes normal facial exam Mouth: Normal oral and palatal mucosa present Throat: Yes posterior oropharynx normal Eyes General: appearance normal, both eyes and all related structures Neck Neck: Yes no lymphadenopathy and Yes supple Resp Effort & Inspection: normal respiratory effort Auscultation: clear to auscultation bilaterally Cardio Rhythm: regular rhythm Heart sounds: S1 normal heart sound present and S2 normal heart sound present GI Inspection: Yes normal to inspection Palpation (GI): Soft to palpation Percussion: Yes normal to percussion Auscultation: normal bowel sounds Coding Level of Care Code Est Pt Prev Care 40-64y(23616) Diagnoses Hx of colonoscopy Z98.890 Hypothyroid E03.9 Thyroid nodule E04.1 Annual physical exam Z00.00 Additional Codes KENA-7 Assessment Billing - KENA-7 Assessment Tool: KENA-7 Assessment 95214 ([id number]) PHQ-9 - 86652 - PHQ-9 Billing: Yes ([id number]) Assessment & Plan Assessment & Plan (1) Hx of colonoscopy: Comment: 2016 normal Code(s): Z98.890 - Other specified postprocedural states Category: Surgical Plan: Up-to-date with colonoscopy (2) Hypothyroid: Code(s): E03.9 - Hypothyroidism, unspecified Category: Medical Plan: Continue levothyroxine (3) Thyroid nodule: Comment: 3 nodules (1 large, 2 small nodules) had negative bx [place] 2024 Code(s): E04.1 - Nontoxic single thyroid nodule Category: Medical Plan: Follow-up with endocrinology (4) Annual physical exam: Code(s): Z00.00 - Encounter for general adult medical examination without abnormal findings Category: Medical Plan: Well-balanced diet regular physical activity discussed with the patient she is up-to-date with the Pap smear by real estate office supervisor and mammogram Orders: Orders TSH reflex Free T4 1 Year E03.9 - Hypothyroidism, unspecified, Z00.00 - Encounter for general adult medical examination without abnormal findings Vitamin D 25-OH Total 1 Year E03.9 - Hypothyroidism, unspecified, Z00.00 - Encounter for general adult medical examination without abnormal findings Comprehensive [place]. Panel Fast 1 Year E03.9 - Hypothyroidism, unspecified, Z00.00 - Encounter for general adult medical examination without abnormal findings Complete Blood Count Auto Diff 1 Year E03.9 - Hypothyroidism, unspecified, Z00.00 - Encounter for general adult medical examination without abnormal findings Lipid Panel 1 Year E03.9 - Hypothyroidism, unspecified, Z00.00 - Encounter for general adult medical examination without abnormal findings
[2024-09-07 13:19] VITALS: BP 112/78; PULSE 86; RESP 18; TEMP 36.9; O2SAT 97; BMI 26.9
--- OUTSIDE RECORDS SUMMARY | 2024-09-07 15:21 | XMS_ITS | Data Portability ---
Author Organization PAMELA Jimenez s, [address] Address [address] [place] [address] Assessment No assessment recorded. Plan of Treatment Reminders Order Date Submit Date Provider Last Modified By Organization Details Last Modified Time Details Appointments None recorded. Lab urinalysis, dipstick 2022 023 [email or web address] [facility] _[facility], [address] [facility], [place], [address], 3 19:39:12 culture, urine 2022 023 LAPORTE [facility], [address] [place] [address], [place], [address], 3 08:06:14 Referral None recorded. Procedures None recorded. Surgeries None recorded. Imaging XR, chest + abdomen 2022 023 YASMANI [facility], [address] [place] [address], [address], 3 20:14:58 Medication Orders Miralax 17 gram/dose oral powder 2022 023 [facility]acy #[id number], [address] [place], [address], 3 19:48:44 Colace 100 mg capsule 2022 023 [facility]acy #[id number], [address] [place], [address], 3 19:48:45 Culturelle 10 billion cell capsule 2022 023 [email or web address] 247 [facility]/Pharmacy #[id number], [address] [facility] [place], [address], 10:07:11 Patient TargetsNo targets recorded. Patient InstructionsNo instructions recorded. Reason for Referral None Reported. Results Created Date Observation Date Name Description Value Unit Range Abnormal Flag Note LastModifiedBy Organization Detail LastModifiedTime 06/20/1906/23/2022 URINE CULTU RE, ROUTI NE urine culture, routine FINAL REPORT Not Available [facility] ([facility]) [address] [facility], [place], [address], 06/23/2022 08:06:13 06/20/1906/23/2022 URINE CULTU RE, ROUTI NE result 1 COMMEN T Cultu re shows less than 10,00 0 colon y formi ng units of bacte charlotte per howard liter of urine . This colon y count is not gener ally consi dered to be clini colin signi fican t. Not Available [facility] ([facility]) [address] [facility], [place], [address], 06/23/2022 08:06:13 06/20/1906/20/2022 urina lysis , dipst ick Unknown Analyte Normal = light yellow Not Available _jerome packer [address] [place], [address], 06/20/2022 17:18:13 06/20/1906/20/2022 urina lysis , dipst ick Unknown Analyte Normal = clear Not Available _jerome packer [address] [place], [address], 06/20/2022 17:18:13 06/20/19 23 06/20/2022 urina lysis , dipst ick Unknown Analyte Normal = negati ve Not Available _jerome packer [address] [place], [address], 06/20/2022 17:18:13 06/20/19 23 06/20/2022 urina lysis , dipst ick Unknown Analyte Normal = Negati ve Not Available 2099[address] packer [address], [place], [address], 06/20/2022 17:18:13 06/20/19 23 06/20/2022 urina lysis , dipst ick Unknown Analyte Normal = Negati ve Not Available [address] [place] [address], [place], [address], 06/20/2022 17:18:13 06/20/19 23 06/20/2022 urina lysis , dipst ick Unknown Analyte Normal = 1.010, 1.015, 1.020 Not Available [address] [place] [address], [place], [address], 06/20/2022 17:18:13 06/20/19 23 06/20/2022 urina lysis , dipst ick Unknown Analyte Normal = Negati ve Not Available [address] [place] [address], [place], [address], 06/20/2022 17:18:13 06/20/19 23 06/20/2022 urina lysis , dipst ick Unknown Analyte Normal = 6.5, 7.0, 7.5, 8.0 Not Available [address] [place] [address], [place], [address], 06/20/2022 17:18:13 06/20/19 23 06/20/2022 urina lysis , dipst ick Unknown Analyte Normal = Negati ve Not Available [address] [place] [address], [place], [address], 06/20/2022 17:18:13 06/20/19 23 06/20/2022 urina lysis , dipst ick Unknown Analyte Normal = 0.2, 1.0 Not Available jerome packer [address], [place], [address], 06/20/2022 17:18:13 06/20/19 23 06/20/2022 urina lysis , dipst ick Unknown Analyte Normal = Negati ve Not Available jerome [address], [place], [address], 06/20/2022 17:18:13 06/20/19 23 06/20/2022 urina lysis , dipst ick Unknown Analyte Normal = Negati ve Not Available jerome packer [address], [place], [address], 06/20/2022 17:18:13 06/20/19 23 06/20/2022 urina lysis , dipst ick Unknown Analyte Yellow Not Available [address], [place], [address], 06/20/2022 17:18:13 06/20/19 23 06/20/2022 urina lysis , dipst ick Unknown Analyte Clear Not Available [address], [place], [address], 06/20/2022 17:18:13 06/20/19 23 06/20/2022 urina lysis , dipst ick Unknown Analyte Negati ve Not Available [address], [place], [address], 06/20/2022 17:18:13 06/20/19 23 06/20/2022 urina lysis , dipst ick Unknown Analyte Negati ve Not Available [address], [place], [address], 06/20/2022 17:18:13 0106/20/2022 urina lysis , dipst ick Unknown Analyte Negati ve Not Available jerome packer [address], [place], [address], 06/20/2022 17:18:13 06/20/19 23 06/20/2022 urina lysis , dipst ick Unknown Analyte 1.015 Not Available shalom [address], [place], [address], 06/20/2022 17:18:13 06/20/19 23 06/20/2022 urina lysis , dipst ick Unknown Analyte Trace- lysed Not Available jerome packer [address], [place], [address], 06/20/2022 17:18:13 06/20/19 23 06/20/2022 urina lysis , dipst ick Unknown Analyte 5.5 Not Available [facility] [address], [place], [address], 06/20/2022 17:18:13 06/20/1906/20/2022 urina lysis , dipst ick Unknown Analyte Negati ve Not Available jerome packer [address], [place], [address], 06/20/2022 17:18:13 06/20/19 23 06/20/2022 urina lysis , dipst ick Unknown Analyte 0.2 E.U./d L Not Available jerome packer [address], [place], [address], 06/20/2022 17:18:13 06/20/19 23 06/20/2022 urina lysis , dipst ick Unknown Analyte Negati ve Not Available jerome packer [address], [place], [address], 06/20/2022 17:18:13 06/20/19 23 06/20/2022 urina lysis , dipst ick Unknown Analyte Negati ve Not Available [address] [facility], [place], [address], 06/20/2022 17:18:13 06/20/19 23 06/20/2022 XR, chest + abdom en No observ ation record ed. [email or web address] 1 [facility] [address] [place], [address], 06/22/2022 11:52:54 Result Notes None recorded. Problems [...] completed [email or web address] [facility] [address] [place], [address], 06/22/2022 11:52:54 Procedure Notes None recorded. Medical [...] Updated DateTime 3 170.18 cm 26.3 kg/m2 24311.5 2 g 98.1 [degF] 20 /min 74 [...] SNOMED-CT Code Diagnosis ICD10 Code Diagnosis Note [id number] [address] [place] [address] 06/27/2019 10:52:28 06/27/2019 11:48:06 [id number] MICHAEL ALONZO MD [address] [place] [address] 06/20/2022 16:14:59 06/20/2022 19:51:15 Abdominal pain 12326120 R10.9 Constipation 76131649 K5 9.00 increase fiber in your diet to 25 mg per day. Health Concerns Section Related Observation LastModified by Organization Detai ls LastModified Time None Recorded Concern Status LastModified by Organization Details LastModified Time None Recorded Advance Directives Directive None Recorded Payers Encounter Date Sequence Insurance Name Policy Number Policy Lockwood Covered Member ID Lockwood Member ID Guarantor Name 06/27/2019 1 [facility] [id number] [employer] [id number] [employer] 06/20/2022 1 [place] [id number] Flazioorski [id number] YimiXsigosahil Deanne Notes Date Note Type Note Provider Name and Address Organization Details Recorded Time 06/20/2022 text/html Urinary Complain t FemaleReported bypatient.UTI Symptoms:no blood in the urine;pain during urination;urgency;ur inary frequency;abdominal pain;flank pain;fever/chills Severity:moderate Duration:4 days abd pain and back pain, urine frequency x 4 days MICHAEL ALONZO MD [address] [place], [place] [address], [address], [place] - [facility] 07/11/2022 10:09:39 OBGyn Episode No OBEpisode recorded.
== END 2024-09-07 14:26 | disposition home or self-care (01) ==
LOC: HO.HMCC 12:57
PROVIDERS: PCP Internal Medicine; Visit Provider Internal Medicine
DX: Z98.890 Other specified postprocedural states (principal); E03.9 Hypothyroidism, unspecified; E04.1 Nontoxic single thyroid nodule; Z00.00 Encounter for general adult medical examination without abnormal findings

== ENCOUNTER → 2024-09-07 12:56 | Outpatient (BNVA) | payer OTHER, SELFPAY | PROVIDERS: PCP Internal Medicine; Visit Provider Internal Medicine | DX: Z00.00 Encounter for general adult medical examination without abnormal findings (principal); E03.9 Hypothyroidism, unspecified; E04.1 Nontoxic single thyroid nodule; Z79.899 Other long term (current) drug therapy | CPT/HCPCS: 96127 ==

== ENCOUNTER 2024-09-20 15:29 | Outpatient (REF) | payer OTHER, SELFPAY ==
--- OUTSIDE RECORDS SUMMARY | 2024-09-20 18:25 | XMS_ITS | Data Portability ---
Author Organization PAMELA Jimenez s, [address] Address [address] [place] [address] Assessment No assessment recorded. Plan of Treatment Reminders Order Date Submit Date Provider Last Modified By Organization Details Last Modified Time Details Appointments None recorded. Lab urinalysis, dipstick 2022 023 [email or web address] [facility] _[facility], [address] [facility], [place], [address], 3 19:39:12 culture, urine 2022 023 SHAFTER [facility], [address] [place] [address], [place], [address], 3 08:06:14 Referral None recorded. Procedures None recorded. Surgeries None recorded. Imaging XR, chest + abdomen 2022 023 YASMANI [facility], [address] [place] [address], [address], 3 20:14:58 Medication Orders Miralax 17 gram/dose oral powder 2022 023 [facility]armacy #[id number], [address] [place], [address], 3 19:48:44 Colace 100 mg capsule 2022 023 [facility]armacy #[id number], [address] [place], [address], 3 19:48:45 Culturelle 10 billion cell capsule 2022 023 [email or web address] 247 [facility] #[id number], [address] [facility] [place], [address], 10:07:11 Patient TargetsNo targets recorded. Patient InstructionsNo instructions recorded. Reason for Referral None Reported. Results Created Date Observation Date Name Description Value Unit Range Abnormal Flag Note LastModifiedBy Organization Detail LastModifiedTime 06/20/1906/23/2022 URINE CULTU RE, ROUTI NE urine culture, routine FINAL REPORT Not Available [facility] ([facility]) [address] [facility], [place], [address], 06/23/2022 08:06:13 06/20/1906/23/2022 URINE CULTU RE, ROUTI NE result 1 COMMEN T Cultu re shows less than 10,00 0 colon y formi ng units of bacte charlotte per howard liter of urine . This colon y count is not gener ally consi dered to be clini colin signi fican t. Not Available [facility] ([facility]) [address] [facility], [place], [address], 06/23/2022 08:06:13 06/20/1906/20/2022 urina lysis , dipst ick Unknown Analyte Normal = light yellow Not Available _jerome packer [address] [place], [address], 06/20/2022 17:18:13 06/20/1906/20/2022 urina lysis , dipst ick Unknown Analyte Normal = clear Not Available _jerome packer [address] [place], [address], 06/20/2022 17:18:13 06/20/19 23 06/20/2022 urina lysis , dipst ick Unknown Analyte Normal = negati ve Not Available _jerome packer [address] [place], [address], 06/20/2022 17:18:13 06/20/19 23 06/20/2022 urina lysis , dipst ick Unknown Analyte Normal = Negati ve Not Available [address]jer[address] packer [address], [place], [address], 06/20/2022 17:18:13 06/20/19 23 06/20/2022 urina lysis , dipst ick Unknown Analyte Normal = Negati ve Not Available [address] [place] [address], [place], [address], 06/20/2022 17:18:13 06/20/19 23 06/20/2022 urina lysis , dipst ick Unknown Analyte Normal = 1.010, 1.015, 1.020 Not Available [address] [place] [address], [place], [address], 06/20/2022 17:18:13 06/20/19 23 06/20/2022 urina lysis , dipst ick Unknown Analyte Normal = Negati ve Not Available [address] [place] [address], [place], [address], 06/20/2022 17:18:13 06/20/19 23 06/20/2022 urina lysis , dipst ick Unknown Analyte Normal = 6.5, 7.0, 7.5, 8.0 Not Available [address] [place] [address], [place], [address], 06/20/2022 17:18:13 06/20/19 23 06/20/2022 urina lysis , dipst ick Unknown Analyte Normal = Negati ve Not Available [address] [place] [address], [place], [address], 06/20/2022 17:18:13 06/20/19 23 06/20/2022 urina lysis , dipst ick Unknown Analyte Normal = 0.2, 1.0 Not Available jerome packer [address], [place], [address], 06/20/2022 17:18:13 06/20/19 23 06/20/2022 urina lysis , dipst ick Unknown Analyte Normal = Negati ve Not Available jerome [address], [place], [address], 06/20/2022 17:18:13 06/20/19 23 06/20/2022 urina lysis , dipst ick Unknown Analyte Normal = Negati ve Not Available jerome packer [address], [place], [address], 06/20/2022 17:18:13 06/20/19 23 06/20/2022 urina lysis , dipst ick Unknown Analyte Yellow Not Available [address], [place], [address], 06/20/2022 17:18:13 06/20/19 23 06/20/2022 urina lysis , dipst ick Unknown Analyte Clear Not Available [address], [place], [address], 06/20/2022 17:18:13 06/20/19 23 06/20/2022 urina lysis , dipst ick Unknown Analyte Negati ve Not Available [address], [place], [address], 06/20/2022 17:18:13 06/20/19 23 06/20/2022 urina lysis , dipst ick Unknown Analyte Negati ve Not Available [address], [place], [address], 06/20/2022 17:18:13 0106/20/2022 urina lysis , dipst ick Unknown Analyte Negati ve Not Available jerome packer [address], [place], [address], 06/20/2022 17:18:13 06/20/19 23 06/20/2022 urina lysis , dipst ick Unknown Analyte 1.015 Not Available shalom [address], [place], [address], 06/20/2022 17:18:13 06/20/19 23 06/20/2022 urina lysis , dipst ick Unknown Analyte Trace- lysed Not Available jerome packer [address], [place], [address], 06/20/2022 17:18:13 06/20/19 23 06/20/2022 urina lysis , dipst ick Unknown Analyte 5.5 Not Available [facility] [address], [place], [address], 06/20/2022 17:18:13 06/20/1906/20/2022 urina lysis , dipst ick Unknown Analyte Negati ve Not Available jerome packer [address], [place], [address], 06/20/2022 17:18:13 06/20/19 23 06/20/2022 urina lysis , dipst ick Unknown Analyte 0.2 E.U./d L Not Available jerome packer [address], [place], [address], 06/20/2022 17:18:13 06/20/19 23 06/20/2022 urina lysis , dipst ick Unknown Analyte Negati ve Not Available jerome packer [address], [place], [address], 06/20/2022 17:18:13 06/20/19 23 06/20/2022 urina lysis , dipst ick Unknown Analyte Negati ve Not Available [address] [facility], [place], [address], 06/20/2022 17:18:13 06/20/19 23 06/20/2022 XR, chest + abdom en No observ ation record ed. [email or web address] 1 [facility] [address] [place], [address], 06/22/2022 11:52:54 Result Notes None recorded. Problems [...] completed [email or web address] [facility] [address] [place], [address], 06/22/2022 11:52:54 Procedure Notes None recorded. Medical [...] Updated DateTime 3 170.18 cm 26.3 kg/m2 36556.5 2 g 98.1 [degF] 20 /min 74 [...] SNOMED-CT Code Diagnosis ICD10 Code Diagnosis Note [id number] [address] [place] [address] 06/27/2019 10:52:28 06/27/2019 11:48:06 [id number] MICHAEL ALONZO MD [address] [place] [address] 06/20/2022 16:14:59 06/20/2022 19:51:15 Abdominal pain 94766828 R10.9 Constipation 70862613 K5 9.00 increase fiber in your diet to 25 mg per day. Health Concerns Section Related Observation LastModified by Organization Detai ls LastModified Time None Recorded Concern Status LastModified by Organization Details LastModified Time None Recorded Advance Directives Directive None Recorded Payers Encounter Date Sequence Insurance Name Policy Number Policy Lockwood Covered Member ID Lockwood Member ID Guarantor Name 06/27/2019 1 [facility] [id number] Publisha [id number] Publisha 06/20/2022 1 [place] [id number] [employer] [id number] YimiSassorsahil Deanne Notes Date Note Type Note Provider Name and Address Organization Details Recorded Time 06/20/2022 text/html Urinary Complain t FemaleReported bypatient.UTI Symptoms:no blood in the urine;pain during urination;urgency;ur inary frequency;abdominal pain;flank pain;fever/chills Severity:moderate Duration:4 days abd pain and back pain, urine frequency x 4 days MICHAEL ALONZO MD [address] [place], [place] [address], [address], [place] - [facility] 07/11/2022 10:09:39 OBGyn Episode No OBEpisode recorded.
== END 2024-09-20 15:30 | disposition home or self-care (01) ==
LOC: HO.MAMMO 15:29
PROVIDERS: PCP Internal Medicine; Visit Provider Internal Medicine
DX: Z12.31 Encounter for screening mammogram for malignant neoplasm of breast (principal)
CPT/HCPCS: 77063; 77067

== ENCOUNTER → 2024-09-20 15:30 | Outpatient (BNV) | payer OTHER, SELFPAY | PROVIDERS: PCP Internal Medicine; Visit Provider Internal Medicine | DX: Z12.31 Encounter for screening mammogram for malignant neoplasm of breast (principal) | CPT/HCPCS: 77063; 77067 ==